=== PATIENT | female | born 1995 | race Caucasian/White ===

== ENCOUNTER 2016-04-05 20:31 | Emergency (ER) | payer OTHER ==
--- NOTE | 2016-04-05 20:48 | EDPHY ---
H & P Stated Complaint: hit head saturday Time Seen by Provider: 04/05/16 20:48 - Personal History LMP (Females 10-55): 8-14 Days Ago Current Tetanus/Diphtheria Vaccine: Unsure Current Tetanus Diphtheria and Acellular Pertussis (TDAP): Unsure - Medical/Surgical History Hx Asthma: No Hx Chronic Respiratory Disease: No Hx Diabetes: No Hx Cardiac Disease: No Hx Renal Disease: No Hx Cirrhosis: No Hx Alcoholism: No Hx HIV/AIDS: No Hx Splenectomy or Spleen Trauma: No Other PMH: ADHD, - Social History Smoking Status: Light smoker Constitutional: Initial Vital Signs Temperature (C) 36.9 C 04/05/16 20:42 Heart Rate 101 H 04/05/16 20:42 Respiratory Rate 16 04/05/16 20:42 Blood Pressure 135/88 H 04/05/16 20:42 O2 Sat (%) 97 04/05/16 20:42 O2 Delivery Mode Room Air Allergies/Adverse Reactions: No Known Allergies Allergy (Unverified 04/05/16 20:42) Home Medications: Medication Instructions Recorded Adderall 10 MG (RX) 11/30/13 Vyvanse 04/05/16 Medical Decision Making ED Course/Re-evaluation: CHIEF COMPLAINT: Head injury HISTORY OF PRESENT ILLNESS: The patient is a 20 year old female presenting with head injury. She hit her head on the wooden part of a couch. She did not lose consciousness. After the event she felt moderate pain to the back of her head. She is is unable to recall what happened after the event. Today she developed nausea. She feels disoriented and had a difficult time writing. She denies lower extremity weakness or numbness. No visual changes. She took Advil. REVIEW OF SYSTEMS: A 10 point review of systems was performed and is negative with the exception of the elements mentioned in the history of present illness. PHYSICAL EXAM: HR, BP, O2 Sat, RR. Temp noted General Appearance: Alert, well hydrated, appropriate, and non-toxic appearing. Head: Atraumatic without scalp tenderness or obvious injury Eyes: Pupils equal, round, reactive to light and accommodation, EOMI, no trauma , no injection. Ears: Clear bilaterally, no perforation, normal landmarks Nose: Atraumatic, no rhinorrhea, clear. Throat: There is no erythema or exudates, no lesions, normal tonsils, mucus membranes moist. Neck: Supple, 2+ carotid upstroke, nontender, no lymphadenopathy. Respiratory: No retractions, no distress, no wheezes, and no accessory muscle use. Lungs are clear to auscultation bilaterally. Cardiovascular: Regular rate and rhythm, no murmurs, rubs, or gallops. Bilateral carotid, radial, dorsalis pedis, and posterior tibial pulses intact. Good capillary refill all extremities. Gastrointestinal: Abdomen is soft, nontender, non-distended, no masses, no rebound, no guarding, no peritoneal signs. Musculoskeletal: Normal active ROM of all extremities, atraumatic. Neurological: Alert, appropriate, and interactive. The patient has normal DTRs and non-focal cranial nerves, motor, sensory, and cerebellar exam. Skin: No rashes, good turgor, no nodules on palpation. Past medical history: Denies Past surgical history: Denies Family history: Noncontributory Social history: Friends at bedside. Alcohol use. DIFFERENTIAL DIAGNOSIS: The differential diagnosis for the patient's head injury included but was not limited to concussion, skull fracture, intra-parenchymal contusion, subarachnoid , subdural and epidural hematoma. MEDICAL DECISION MAKING: The patient is a 20 year old female here with post concussive syndrome. The patient hit her head on the wooden part of a couch.She complains of nausea and feeling disoriented. Imaging is not necessary. Patient has negative [place] head CT rule set. Plan to discharge with concussion clinic followup. Departure - Departure Disposition: Home, Routine, Self-Care Clinical Impression: Concussion Qualifiers: Encounter type: initial encounter Loss of consciousness presence/duration: without LOC Qualifier Code: (S06.0X0A) Concussion without loss of consciousness , initial encounter Condition: Good Instructions: Concussion (ED) Additional Instructions: Followup with the concussion clinic if you continue to have symptoms. Referrals: Dana Figueredo MD [Medical Doctor] - As per Instructions (Concussion Clinic) Report Scribed for: Balbir Barker Report Scribed by: Sherry Mason Date of Report: 04/05/16 Time of Report: 20:57
[2016-04-05 21:06] VITALS: BP 120/88; PULSE 70; RESP 14; TEMP 97.9; O2SAT 94
== END 2016-04-05 21:09 | disposition home or self-care (01) ==
DX: S06.0X0A Concussion without loss of consciousness, initial encounter (principal); F17.200 Nicotine dependence, unspecified, uncomplicated; W22.8XXA Striking against or struck by other objects, initial encounter